=== PATIENT | male | born 1955 | race Caucasian/White ===

== ENCOUNTER 2019-11-16 12:12 | Emergency (ER) | payer MEDICAID, OTHER ==
[~2019-11-16] VITALS: Ht 170.2 cm; Wt 80.0 kg
[~2019-11-16 12:12] MED LIST: ASPI-515 PO; LOVA20TA2 PO; METH10SY PO; METO25TA35 PO; NITR0.4T28 SL; QUET25TA5 PO
[2019-11-16 12:41] VITALS: BP 112/73
== END 2019-11-16 13:36 ==
LOC: ED 13:20
DX: G89.29 Other chronic pain (principal); M54.9 Dorsalgia, unspecified; R53.1 Weakness; F17.200 Nicotine dependence, unspecified, uncomplicated; E78.00 Pure hypercholesterolemia, unspecified; I25.2 Old myocardial infarction; R94.31 Abnormal electrocardiogram [ECG] [EKG]; Z86.73 Personal history of transient ischemic attack (TIA), and cerebral infarction without residual deficits
CPT/HCPCS: 93005; 99283